=== PATIENT | male | born 1995 | race American Indian/Alaskan Native ===

== ENCOUNTER 2017-09-08 21:37 | Emergency (ER) | payer BC ==
[2017-09-08 22:23] VITALS: BP 117/63
--- NOTE | 2017-09-09 00:21 | Emergency Department Report ---
HPI - General Chief Complaint: Animal Bite Time Seen by Provider: 09/08/17 23:57 - HPI HPI: Patient is a 22-year-old male with no prior medical history who presents to ED complaining of red palms all over his body 2 days. Patient states he was down in [place] for the past 2 days where he states he now motel room. Patient states upon waking this morning he noticed that he had red, itching, bumps all over his back, arms and legs. Patient denies fevers/chills/nausea vomiting/ abdominal pain/chest pain or exposure to any irritants or chemicals. ED Past Medical Hx - Past Medical History Previous Medical History?: No - Surgical History Past Surgical History?: No - Social History Smoking Status: Never Smoker Substance Use Type: None - Medications Home Medications: Home Medications Medication Instructions Recorded Confirmed Last Taken Type Hydrocortisone 0.5% (Nf) 1 applicatio TP TID #1 tube 09/09/17 Unknown Rx [Hydrocortisone 0.5% OINT] Pramoxine HCl/Calamine [Calamine 1 applic TP DAILY #1 lotion 09/09/17 Unknown Rx Medicated Lotion] diphenhydrAMINE [Benadryl CAP] 25 mg PO QHS PRN #20 capsule 09/09/17 Unknown Rx ED Review of Systems ROS: Stated complaint: RASH Other details as noted in HPI Constitutional: denies: chills, fever Eyes: denies: eye pain, eye discharge, vision change ENT: denies: ear pain, throat pain Respiratory: denies: cough, shortness of breath, wheezing Cardiovascular: denies: chest pain, palpitations Endocrine: no symptoms reported Gastrointestinal: denies: abdominal pain, nausea, diarrhea Genitourinary: denies: urgency, dysuria Musculoskeletal: denies: back pain, joint swelling, arthralgia Skin: rash, pruritus. denies: lesions Neurological: denies: headache, weakness, paresthesias Psychiatric: denies: anxiety, depression Hematological/Lymphatic: denies: easy bleeding, easy bruising Physical Exam - Physical Exam Vital Signs: Vital Signs 09/08/17 22:20 Temperature 98.8 F Pulse Rate 64 Respiratory 16 Rate Blood Pressure 117/63 O2 Sat by Pulse 97 Oximetry Physical Exam: GENERAL: Alert and oriented x3, no apparent distress, Normal Gait, atraumatic. HEAD: Head is normocephalic and a-traumatic. EYES: Extra ocular muscles are intact. Pupils are equal, round, and reactive to light and accommodation. MOUTH:Mouth is well hydrated and without lesions. Tonsils nonerythematous or swollen, Uvula midline, Tongue not elevated. Mucous membranes are moist. Posterior pharynx clear, no exudate or lesions. Patent airways. NECK: Supple. Non edematous, No lymphadenopathy or thyromegaly. No C-spine tenderness LUNGS: Symetrical with respiration, No wheezing, no rales or crackles, CTAB. HEART: S1, S2 present, regular rate and rhythm without murmur, no rubs, no gallops. Non tender to palpation BACK: Full range of motion, no spinal tenderness, nontender to palpation. Small ,generalized erythematous, raised, rash, bumps on back SKIN: Warm and dry, generalized erythematous, itching, raised bumps consistent with bites seen on back, arms and lower extremities No other lesions, No ulceration or induration present. ED Course Vital Signs 09/08/17 22:20 Temperature 98.8 F Pulse Rate 64 Respiratory 16 Rate Blood Pressure 117/63 O2 Sat by Pulse 97 Oximetry ED Medical Decision Making - Medical Decision Making 22-year-old male presents with bed bug bites ED course: Patient received prednisone 8 right e. Benadryl wasn't given due to patient being driving home. Discussed patient to get rid of all clothes from the hotel room A. Discussed with the patient he'll be going home on medications that help his symptoms. Discussed with patient to follow up with primary care physician 3-5 days for secondary assessment Vital signs are normal patient is in no acute or respiratory distress Critical care attestation.: If time is entered above; I have spent that time in minutes in the direct care of this critically ill patient, excluding procedure time. ED Disposition Clinical Impression: Bed bug bite Qualifiers: Encounter type: initial encounter Qualified Code(s): W57.XXXA - Bitten or stung by nonvenomous insect and other nonvenomous arthropods, initial encounter Disposition: - TO HOME OR SELFCARE Is pt being admited?: No Does the pt Need Aspirin: No Condition: Stable Instructions: Urticaria (ED), Insect Bite or Sting (ED), Acute Rash (ED) Additional Instructions: Make sure to follow up with the primary care physician as discussed. Take all your medications as you've been prescribed. If you have any worsening symptoms or develop new symptoms please return to ED immediately. Prescriptions: diphenhydrAMINE [Benadryl CAP] 25 mg PO QHS PRN #20 capsule PRN Reason: Itching Hydrocortisone 0.5% (Nf) [Hydrocortisone 0.5% OINT] 1 applicatio TP TID #1 tube Pramoxine HCl/Calamine [Calamine Medicated Lotion] 1 applic TP DAILY #1 lotion Referrals: PRIMARY CARE,MD [Primary Care Provider] - 3-5 Days [facility] [Outside] - 3-5 Days [facility] [Outside] - 3-5 Days Forms: Work/School Release Form(ED) Time of Disposition: 00:36
[2017-09-09] MEDS ORDERED: DELTASONE PO ONE (00:36)
== END 2017-09-09 01:03 | disposition home or self-care (01) ==
LOC: ED 21:37
DX: S20.469A Insect bite (nonvenomous) of unspecified back wall of thorax, initial encounter (principal); S40.862A Insect bite (nonvenomous) of left upper arm, initial encounter; S40.861A Insect bite (nonvenomous) of right upper arm, initial encounter; S80.862A Insect bite (nonvenomous), left lower leg, initial encounter; S80.861A Insect bite (nonvenomous), right lower leg, initial encounter; W57.XXXA Bitten or stung by nonvenomous insect and other nonvenomous arthropods, initial encounter; Y93.89 Activity, other specified; Y92.89 Other specified places as the place of occurrence of the external cause; Y99.8 Other external cause status
CPT/HCPCS: 99282; J7512

== ENCOUNTER 2018-06-29 01:38 | Emergency (ER) | payer BC ==
[2018-06-29 02:20] VITALS: BP 121/69
[2018-06-29] MEDS ORDERED: NORCO 5/325 PO STA (04:32)
--- NOTE | 2018-06-29 04:38 | Emergency Department Report ---
ED ENT HPI - General Chief complaint: Upper Respiratory Infection Stated complaint: NASAL CONGESTION/MIGRAINES Time Seen by Provider: 06/29/18 03:47 Source: patient Mode of arrival: Ambulatory Limitations: No Limitations - History of Present Illness Initial comments: 23-year-old -[place] male was brought department complaining of a 2 week history of nasal congestion and increasing worsening sinus pressure was scant sinus discharge. Also begin to express some throat irritation and ear pressure. No fever, chills, sweats, chest pain, palpitations, nausea, vomiting, diarrhea. Reports no dysuria, no trauma. Pain is dull and throbbing, primarily located in the maxillary sinus region and worse with head position. Location: nose Severity: mild Quality: constant Consistency: constant Improves with: none Worsens with: none Associated Symptoms: rhinorrhea. denies: gum swelling, pain with swallowing, sore throat, discharge from ear - Related Data Previous Rx's Medication Instructions Recorded Last Taken Type Hydrocortisone 0.5% (Nf) 1 applicatio TP TID #1 tube 09/09/17 Unknown Rx [Hydrocortisone 0.5% OINT] Pramoxine HCl/Calamine [Calamine 1 applic TP DAILY #1 lotion 09/09/17 Unknown Rx Medicated Lotion] diphenhydrAMINE [Benadryl CAP] 25 mg PO QHS PRN #20 capsule 09/09/17 Unknown Rx Amoxicillin/Potassium Clav 1 each PO BID #20 tablet 06/29/18 Unknown Rx [Augmentin 875-125 Tablet] Ketorolac [Toradol] 10 mg PO Q6H PRN #15 tablet 06/29/18 Unknown Rx Mometasone Furoate [Nasonex] 2 spray NS QDAY #1 bottle 06/29/18 Unknown Rx predniSONE [Deltasone] 50 mg PO QDAY #5 tab 06/29/18 Unknown Rx Allergies Allergy/AdvReac Type Severity Reaction Status Date / Time No Known Allergies Allergy Verified 09/08/17 22:20 ED Dental HPI - General Chief complaint: Upper Respiratory Infection Stated complaint: NASAL CONGESTION/MIGRAINES Time Seen by Provider: 06/29/18 03:47 Source: patient Mode of arrival: Ambulatory Limitations: No Limitations - Related Data Previous Rx's Medication Instructions Recorded Last Taken Type Hydrocortisone 0.5% (Nf) 1 applicatio TP TID #1 tube 09/09/17 Unknown Rx [Hydrocortisone 0.5% OINT] Pramoxine HCl/Calamine [Calamine 1 applic TP DAILY #1 lotion 09/09/17 Unknown Rx Medicated Lotion] diphenhydrAMINE [Benadryl CAP] 25 mg PO QHS PRN #20 capsule 09/09/17 Unknown Rx Amoxicillin/Potassium Clav 1 each PO BID #20 tablet 06/29/18 Unknown Rx [Augmentin 875-125 Tablet] Ketorolac [Toradol] 10 mg PO Q6H PRN #15 tablet 06/29/18 Unknown Rx Mometasone Furoate [Nasonex] 2 spray NS QDAY #1 bottle 06/29/18 Unknown Rx predniSONE [Deltasone] 50 mg PO QDAY #5 tab 06/29/18 Unknown Rx Allergies Allergy/AdvReac Type Severity Reaction Status Date / Time No Known Allergies Allergy Verified 09/08/17 22:20 ED Review of Systems ROS: Stated complaint: NASAL CONGESTION/MIGRAINES Other details as noted in HPI Constitutional: denies: chills, fever Eyes: denies: eye pain, eye discharge, vision change ENT: congestion. denies: ear pain, throat pain Respiratory: denies: cough, shortness of breath, wheezing Cardiovascular: denies: chest pain, palpitations Endocrine: no symptoms reported Gastrointestinal: denies: abdominal pain, nausea, diarrhea Genitourinary: denies: urgency, dysuria Musculoskeletal: denies: back pain, joint swelling, arthralgia Skin: denies: rash, lesions Neurological: denies: headache, weakness, paresthesias Psychiatric: denies: anxiety, depression Hematological/Lymphatic: denies: easy bleeding, easy bruising ED Past Medical Hx - Past Medical History Previous Medical History?: No - Surgical History Past Surgical History?: No - Social History Smoking Status: Never Smoker Substance Use Type: None - Medications Home Medications: Home Medications Medication Instructions Recorded Confirmed Last Taken Type Hydrocortisone 0.5% (Nf) 1 applicatio TP TID #1 tube 09/09/17 Unknown Rx [Hydrocortisone 0.5% OINT] Pramoxine HCl/Calamine [Calamine 1 applic TP DAILY #1 lotion 09/09/17 Unknown Rx Medicated Lotion] diphenhydrAMINE [Benadryl CAP] 25 mg PO QHS PRN #20 capsule 09/09/17 Unknown Rx Amoxicillin/Potassium Clav 1 each PO BID #20 tablet 06/29/18 Unknown Rx [Augmentin 875-125 Tablet] Ketorolac [Toradol] 10 mg PO Q6H PRN #15 tablet 06/29/18 Unknown Rx Mometasone Furoate [Nasonex] 2 spray NS QDAY #1 bottle 06/29/18 Unknown Rx predniSONE [Deltasone] 50 mg PO QDAY #5 tab 06/29/18 Unknown Rx ED Physical Exam - General Limitations: No Limitations General appearance: alert, in no apparent distress - Head Head exam: Present: atraumatic, normocephalic - Eye Eye exam: Present: normal appearance, PERRL, EOMI - ENT ENT exam: Present: mucous membranes moist, other (bilateral sinus congestion, left greater than right, with some with redness noted some. He some yellowish c olor straining as well. There is maxillary sinus tenderness to percussion. Small effusion to the left ear. No lymphadenopathy appreciated.) - Neck Neck exam: Present: normal inspection - Respiratory Respiratory exam: Present: normal lung sounds bilaterally. Absent: respiratory distress, wheezes, rhonchi, stridor, chest wall tenderness - Cardiovascular Cardiovascular Exam: Present: regular rate, normal rhythm. Absent: systolic murmur, diastolic murmur, rubs, gallop - GI/Abdominal GI/Abdominal exam: Present: soft, normal bowel sounds - Rectal Rectal exam: Present: deferred - Extremities Exam Extremities exam: Present: normal inspection - Back Exam Back exam: Present: normal inspection - Neurological Exam Neurological exam: Present: alert, oriented X3 - Psychiatric Psychiatric exam: Present: normal affect, normal mood - Skin Skin exam: Present: warm, dry, intact, normal color. Absent: rash ED Course Vital Signs 06/29/18 02:18 Temperature 98.4 F Pulse Rate 75 Respiratory 16 Rate Blood Pressure 121/69 O2 Sat by Pulse 97 Oximetry Critical care attestation.: If time is entered above; I have spent that time in minutes in the direct care of this critically ill patient, excluding procedure time. ED Disposition Clinical Impression: Sinusitis Disposition: DC- TO HOME OR SELFCARE Is pt being admited?: No Does the pt Need Aspirin: No Condition: Stable Instructions: Acute Bacterial Rhinosinusitis (ED), Sinusitis (ED) Referrals: ALEXANDRA CABRALES MD [Primary Care Provider] - 3-5 Days
== END 2018-06-29 04:40 | disposition home or self-care (01) ==
LOC: ED 01:38
DX: J32.0 Chronic maxillary sinusitis (principal); H65.192 Other acute nonsuppurative otitis media, left ear
CPT/HCPCS: 99282